=== PATIENT | male | born 1990 | race Caucasian/White ===

== ENCOUNTER → 2016-08-04 | Outpatient (CLI) | payer BC ==
--- NOTE | 2016-08-04 10:45 | REP ---
BILIARY SCAN WITH GALLBLADDER EJECTION FRACTION: 08/04/2016 CLINICAL HISTORY: Right upper quadrant pain. Possible sludge but no stones or other acute finding on ultrasound COMPARISON: Ultrasound 07/18/2016. FINDINGS: The patient received 6.1 mCi technetium 99m mebrofenin via an IV. Sequential 5-minute images for 1 hour were obtained anteriorly. Thereafter 8 ounces of Ensure Enlive was consumed and another set of images at 2-minute intervals for 1 hour in anterior projection performed. Region of interest drawn about the gallbladder and ejection fraction calculated by semiautomated method. Homogeneous tracer distribution throughout the liver noted. Activity first seen in the gallbladder fossa at 10 minutes and the common duct by 20 minutes and in the duodenum and jejunum by 45 minutes. There is good washout of activity from the liver and progressive filling of activity in the gallbladder with some activity showing peristalsis in small bowel. After the fatty meal, gallbladder region of interest evaluated for 60 minutes at 2-minute intervals with the ejection fraction calculated at 61% for 60 minutes. IMPRESSION: 1. Homogeneous tracer distribution throughout the liver with prompt activity into the gallbladder fossa and washout from the liver. Biliary to bowel transit also unremarkable and gallbladder ejection fraction calculated at 61% with the normal range greater than 35% for this technique. Negative exam. Signed by Manolo Lundberg MD 08/04/2016 05:38 P
== END ==
LOC: M RAD 07:26
PROVIDERS: ATTEND Physician Assistant
DX: R10.11 Right upper quadrant pain (principal)

== ENCOUNTER 2023-09-01 15:31 | Emergency (ER) | payer OTHER ==
[~2023-09-01] VITALS: Ht 180.3 cm; Wt 100.0 kg
[2023-09-01] MEDS: KETOROLAC 30 MG/ML 1ML VIAL IM ONE (19:51)
[2023-09-01] MEDS: diazePAM 5MG TABLET PO ONE (19:52)
[2023-09-01] MEDS: LIDOCAINE 5% (LIDODERM) PATCH TD ONE (19:52)
[2023-09-01] MEDS ORDERED: NAPR-885 PO (21:03)
[2023-09-01] MEDS ORDERED: METH-1164 PO (21:03)
[2023-09-01 21:11] VITALS: BP 140/77; TEMP 97.5; O2SAT 100
== END 2023-09-01 21:12 | disposition home or self-care (01) ==
LOC: M ED 15:31
DX: S22.080A Wedge compression fracture of T11-T12 vertebra, initial encounter for closed fracture (principal); M51.36 Other intervertebral disc degeneration, lumbar region; M48.061 Spinal stenosis, lumbar region without neurogenic claudication; W19.XXXA Unspecified fall, initial encounter; Y92.89 Other specified places as the place of occurrence of the external cause; Y93.44 Activity, trampolining; Y99.9 Unspecified external cause status; Z87.891 Personal history of nicotine dependence
CPT/HCPCS: 72131; 96372; 99283; J1885